=== PATIENT | female | born 1985 | race African-American/Black ===

== ENCOUNTER 2019-06-20 13:14 | Emergency (ER) | payer SELFPAY ==
[2019-06-20 15:31] LABS: Urine Blood 3+ (NEG); Urine Glucose NEGATIVE (NEG); Urine Protein NEGATIVE (NEG); Urine Specific Gravity >1.030 (1.005-1.030)
[2019-06-20 15:33] LABS: Urine Bacteria 20-50 /HPF (<20); Urine Culture Reflex Order REFLEXED; Urine Mucus 2+ /HPF (NONE SEEN)
[2019-06-20] MEDS ORDERED: AZITHROMYCIN 250 MG TAB ONE (16:34)
[2019-06-20] MEDS ORDERED: CEFTRIAXONE 1000 MG/VIAL ONE (16:34)
[2019-06-20] MEDS ORDERED: WATER FOR INJ,STERILE 10 ML ONE (16:34)
--- NOTE | 2019-06-20 16:41 | EDPHYS ---
Physician Documentation [facility] Name: Yu Chavez Age: 34 yrs Sex: Female : 1985 Arrival Date: 06/20/2019 Time: 13:17 Bed 30 Private MD: Дмитрий Hill HPI: 06/19 14:18 This 34 yrs old Black Female presents to ER via Ambulatory with complaints of Vaginal pm1 Discharge, Finger Injury. 14:18 The patient presents with vaginal discharge, patient has had similar discharge in the pm1 past, Bacterial Vaginosis. 14:19 Onset: The symptoms/episode began/occurred yesterday. Modifying factors: The symptoms pm1 are alleviated by nothing, the symptoms are aggravated by nothing. Associated signs and symptoms: Pertinent negatives: diarrhea, dysuria, fever, vomiting. The patient's method of control includes condom. Patient with vaginal discharge onset yesterday. Similar to prior discharge in the past that was diagnosed as BV and prescribed Flagyl. Patient also complaining of right middle finger pain and swelling. Historical: - Allergies: 13:38 No Known Allergies; ss - Home Meds: 13:38 None [Active]; ss - PMHx: 13:38 None; ss - PSHx: 13:38 ; ss - Immunization history:: Adult Immunizations up to date. - Social history:: Smoking status: Patient reports the use of cigarette tobacco products, smokes one-half pack cigarettes per day. ROS: 14:19 Positive for vaginal discharge, Negative for urinary symptoms, vaginal bleeding. pm1 14:19 Constitutional: Negative for fever, chills, and weight loss, Neck: Negative for injury, pain, and swelling, Cardiovascular: Negative for chest pain, palpitations, and edema, Respiratory: Negative for shortness of breath, cough, wheezing, and pleuritic chest pain, Abdomen/GI: Negative for abdominal pain, nausea, vomiting, diarrhea, and constipation, Back: Negative for injury and pain. 14:19 Skin: Negative for injury, rash, and discoloration, Neuro: Negative for headache, weakness, numbness, tingling, and seizure. 14:19 MS/extremity: Positive for pain, swelling, tenderness, of the right middle finger, Negative for injury or acute deformity, decreased range of motion, deformity. Exam: 14:19 Constitutional: This is a well developed, well nourished patient who is awake, alert, pm1 and in no acute distress. Head/Face: Normocephalic, atraumatic. Neck: Trachea midline, no thyromegaly or masses palpated, and no cervical lymphadenopathy. Supple, full range of motion without nuchal rigidity, or vertebral point tenderness. No Meningismus. Chest/axilla: Normal chest wall appearance and motion. Nontender with no deformity. No lesions are appreciated. Cardiovascular: Regular rate and rhythm with a normal S1 and S2. No gallops, murmurs, or rubs. No pulse deficits. Respiratory: Lungs have equal breath sounds bilaterally, clear to auscultation and percussion. No rales, rhonchi or wheezes noted. No increased work of breathing, no retractions or nasal flaring. Abdomen/GI: Soft, non-tender, with normal bowel sounds. No distension or tympany. No guarding or rebound. No evidence of tenderness throughout. Back: No spinal tenderness. No costovertebral tenderness. Full range of motion. 14:19 MS/ Extremity: Pulses equal, no cyanosis. Neurovascular intact. Full, normal range of motion. 14:19 Skin: Appearance: normal except for affected area, swelling, noted on the lateral to right middle fingernail, that are mild. 14:19 Neuro: Orientation: is normal, Motor: is normal, moves all fours, Sensation: is normal, no obvious gross deficits. Vital Signs: 13:36 BP 116 / 78; Pulse 77; Resp 15; Temp 98.5(TE); Pulse Ox 99% on R/A; Weight 74.39 kg; ss Height 5 ft. 4 in. (162.56 cm); Pain 0/10; 16:00 BP 124 / 81; Pulse 79; Resp 18; Pulse Ox 99% on R/A; wh 13:36 Body Mass Index 28.15 (74.39 kg, 162.56 cm) MDM: 14:04 Patient medically screened. pm1 16:18 Data reviewed: vital signs. Data interpreted: Pulse oximetry: on room air is 99 %. pm1 Interpretation: normal. 16:36 Refusal of service: The patient/guardian displays adequate decision making capability pm1 and despite a detailed discussion of alternatives, benefits, risks, and consequences refuses: Patient does not want to wait for labs, particularly beta HCG level because she needs to fruit picker her child. Patient reports that she would be approximately 2-3 weeks . Based on pelvic exam, patient with likely threatened miscarriage but unable to rule out ectopic without U/S if needed based on Beta HCG. 18:56 ED course: Despite patient leaving AMA, I called the patient to inform her that her pm1 is further along than she believed. [place] [id number] and highly encouraged ultrasound with technical report writer or ER as soon as possible to determine location of due to risk of ectopic . Informed her that ectopic can cause hemorrhaging and if not ruled out and treated. 06/19 14:16 Order name: Wet Prep; Complete Time: 15:59 pm1 06/19 14:16 Order name: GC (GONORR/CHLAMYDIA) Probe pm1 06/19 14:16 Order name: Urine Microscopic Only; Complete Time: 15:36 pm1 06/19 15:16 Order name: Urine Dipstick--Ancillary (enter results) bd 06/19 15:16 Order name: Urine --Ancillary (enter results) bd 06/19 15:32 Order name: Urine --Ancillary; Complete Time: 15:36 EDMS 06/19 15:32 Order name: Urine Dipstick-Ancillary; Complete Time: 15:36 EDLA 06/19 15:37 Order name: Quantitative Hcg; Complete Time: 18:49 pm1 06/19 15:37 Order name: Abo/rh Typing; Complete Time: 18:49 pm1 06/19 15:37 Order name: Basic Metabolic Panel; Complete Time: 18:49 pm1 06/19 15:37 Order name: CBC with Diff; Complete Time: 17:16 pm1 06/19 16:02 Order name: Urine Culture EDLA 06/19 14:16 Order name: Urine Dipstick-Ancillary (obtain specimen); Complete Time: 15:09 pm1 06/19 14:16 Order name: Urine Test (obtain specimen); Complete Time: 15:09 pm1 06/19 15:37 Order name: Labs collected and sent; Complete Time: 16:25 pm1 06/19 15:37 Order name: NPO; Complete Time: 16:25 pm1 Administered Medications: 15:38 CANCELLED (Duplicate Order): Rocephin 1 grams IV at calculated rate once; Given slow IV pm1 push per pharmacy instructions 16:36 Drug: AZITHromycin 1 grams Route: PO; 17:00 Follow up: Response: No adverse reaction 16:37 CANCELLED (Physician Discretion): Rocephin 1 grams IV at calculated rate once; Given wh slow IV push per pharmacy instructions 16:37 Drug: Rocephin (cefTRIAXone) 1 grams Route: IM; Site: left gluteus; 17:00 Follow up: Response: No adverse reaction Disposition: 06/20 07:42 Co-signature as Attending Physician, Дмитрий Chavez MD I agree with the assessment and natalie plan of care. Disposition: 06/20/19 16:41 Patient has left against medical advice. Impression: Threatened , Cellulitis of right finger - paronychia of middle finger, Urinary tract infection, site not specified. - Patients states they are going to Home. - Condition is Stable. - Discharge Instructions: Paronychia, Threatened Miscarriage, and Urinary Tract Infection, Pelvic Rest. - Prescriptions for Augmentin 875- 125 mg Oral Tablet - take 1 tablet by ORAL route every 12 hours for 10 days; 20 tablet. Work release form form. Follow up: Emergency Department; When: As needed; Reason: Worsening of condition. Follow up: Private Physician; When: 2 - 3 days; Reason: Recheck today's complaints, Continuance of care, Re-evaluation by your physician. - Problem is new. - Symptoms have improved. Signatures: Dispatcher [employer] Дмитрий Gomez MD MD cha Smirch, Shelby, RN RN Don Salinas, BELT BUILDER HELPER BELT BUILDER HELPER pm1 DajuanbrionnaRabia Corrections: (The following items were deleted from the chart) 06/19 15:38 15:37 Rocephin 1 grams IV at calculated rate once; Given slow IV push per pharmacy pm1 instructions ordered. pm1 16:25 15:37 IV Saline Lock ordered. pm1 16:37 15:37 Rocephin 1 grams IV at calculated rate once; Given slow IV push per pharmacy instructions ordered. pm1 16:43 16:41 06/20/2019 16:41 Patients has left against medical advice. Impression: Threatened pm1 ; Cellulitis of right finger - paronychia of middle finger. Patient states they are going to Home. Condition is Stable. Follow up: Emergency Department; When: As needed; Reason: Worsening of condition. Follow up: Private Physician; When: 2 - 3 days; Reason: Recheck today's complaints, Continuance of care, Re-evaluation by your physician. Problem is new. Symptoms have improved. pm1 17:05 16:43 06/20/2019 16:41 Patients has left against medical advice. Impression: Threatened wh ; Cellulitis of right finger - paronychia of middle finger; Urinary tract infection, site not specified. Patient states they are going to Home. Condition is Stable. Discharge Instructions: Paronychia, Threatened Miscarriage, and Urinary Tract Infection, Pelvic Rest. Prescriptions for Augmentin 875-125 mg Oral Tablet - take 1 tablet by ORAL route every 12 hours for 10 days; 20 tabletFollow up: Emergency Department; When: As needed; Reason: Worsening of condition. Follow up: Private Physician; When: 2 - 3 days; Reason: Recheck today's complaints, Continuance of care, Re-evaluation by your physician. Problem is new. Symptoms have improved. pm1
--- NOTE | 2019-06-20 16:41 | ER ---
Nurse's Notes [facility] Name: Yu Chavez Age: 34 yrs Sex: Female : 1985 Arrival Date: 06/20/2019 Time: 13:17 Bed 30 Private MD: Diagnosis: Threatened ;Cellulitis of right finger-paronychia of middle finger;Urinary tract infection, site not specified Presentation: 06/19 13:36 Chief complaint: Patient states: vaginal discharge that began yesterday. Pain, swelling ss and tingling to R third finger that began earlier today. Pt states, "I think I have an infected hang nail or something.". Coronavirus screen: The patient has NOT traveled to a country currently being monitored by the [facility] within the last 14 days. Proceed with normal triage procedures. Ebola Screen: Patient denies exposure to infectious person. Patient denies travel to an Ebola-affected area in the 21 days before illness onset. Initial Sepsis Screen: Does the patient meet any 2 criteria? No. Patient's initial sepsis screen is negative. Does the patient have a suspected source of infection? No. Patient's initial sepsis screen is negative. Risk Assessment: Do you want to hurt yourself or someone else? Patient reports no desire to harm self or others. 13:36 Method Of Arrival: Ambulatory ss 13:36 Acuity: CHHAYA 3 ss 14:15 Onset of symptoms is unknown. wh Triage Assessment: 14:15 General: Appears in no apparent distress. Behavior is calm, cooperative, appropriate wh for age. Historical: - Allergies: 13:38 No Known Allergies; ss - Home Meds: 13:38 None [Active]; ss - PMHx: 13:38 None; ss - PSHx: 13:38 ; ss - Immunization history:: Adult Immunizations up to date. - Social history:: Smoking status: Patient reports the use of cigarette tobacco products, smokes one-half pack cigarettes per day. Screenin:15 Abuse screen: Denies threats or abuse. Denies injuries from another. Nutritional wh screening: No deficits noted. Tuberculosis screening: No symptoms or risk factors identified. Fall Risk None identified. Assessment: 14:15 General: Appears in no apparent distress. Behavior is calm, cooperative, appropriate wh for age. Pain: Complains of pain in right middle finger Pain currently is 7 out of 10 on a pain scale. Quality of pain is described as aching. Neuro: Level of Consciousness is awake, alert, obeys commands, Oriented to person, place, time, situation, Appropriate for age. Cardiovascular: Capillary refill < 3 seconds. Respiratory: Airway is patent Respiratory effort is even, unlabored, Respiratory pattern is regular, symmetrical. GI: Abdomen is flat, non-distended. : Reports vaginal bleeding that is bright red, with clots, moderate flow. EENT: No signs and/or symptoms were reported regarding the EENT system. Derm: Skin is intact, is healthy with good turgor, Skin is pink, warm \\T\\ dry. normal. Musculoskeletal: Circulation, motion, and sensation intact. 15:30 Reassessment: Patient appears in no apparent distress at this time. No changes from previously documented assessment. Patient and/or family updated on plan of care and expected duration. Pain level reassessed. Patient is alert/active/playful, equal unlabored respirations, skin warm/dry/pink. 16:45 Reassessment: Patient appears in no apparent distress at this time. No changes from previously documented assessment. Patient and/or family updated on plan of care and expected duration. Pain level reassessed. Patient is alert/active/playful, equal unlabored respirations, skin warm/dry/pink. Pt wants to signs AMA and leave without knowing results, notified Provider. Vital Signs: 13:36 BP 116 / 78; Pulse 77; Resp 15; Temp 98.5(TE); Pulse Ox 99% on R/A; Weight 74.39 kg; Height 5 ft. 4 in. (162.56 cm); Pain 0/10; 16:00 BP 124 / 81; Pulse 79; Resp 18; Pulse Ox 99% on R/A; wh 13:36 Body Mass Index 28.15 (74.39 kg, 162.56 cm) ED Course: 13:17 Patient arrived in ED. rg4 13:38 Triage completed. ss 13:38 Arm band placed on right wrist. ss 13:59 Rabia Vasques is Primary Nurse. wh 14:04 Don Salmon NP is PHCP. pm1 14:04 Дмитрий Chavez MD is Attending Physician. pm1 14:15 Patient has correct armband on for positive identification. Bed in low position. Call light in reach. Side rails up X 1. Pulse ox on. NIBP on. 15:21 Assist provider with pelvic exam: Set up pelvic tray. Performed by Don Salmon NP Specimens sent to lab. Patient tolerated well. Aline HINES Tech as stage technician. 15:29 GC (GONORR/CHLAMYDIA) Probe Sent. 3 15:29 Wet Prep Sent. 3 16:43 Initial lab(s) drawn, by mi, sent to lab. 3 17:00 Patient did not have IV access during this emergency room visit. Administered Medications: 15:38 CANCELLED (Duplicate Order): Rocephin 1 grams IV at calculated rate once; Given slow IV pm1 push per pharmacy instructions 16:36 Drug: AZITHromycin 1 grams Route: PO; 17:00 Follow up: Response: No adverse reaction 16:37 CANCELLED (Physician Discretion): Rocephin 1 grams IV at calculated rate once; Given slow IV push per pharmacy instructions 16:37 Drug: Rocephin (cefTRIAXone) 1 grams Route: IM; Site: left gluteus; 17:00 Follow up: Response: No adverse reaction Outcome: 17:00 AMA AMA form signed 17:00 Condition: stable 17:00 Discharge instructions given to patient, Instructed on discharge instructions, follow up and referral plans. medication usage, POC Demonstrated understanding of instructions, follow-up care, medications, POC Prescriptions given X 1. 17:05 Patient left the ED. Addendum: 06/22/2019 09:24 Addendum: Culture Results: Positive urine culture. No further action required. Bacteria d m5 sensitive to prescribed antibiotic. Signatures: Whit Jean, SHAWANDA [email or web address] Louise Bennett RN RN ss Marinas, Patrick, NP TRAFFIC ENGINEERING TECHNICIAN pm1 Tamra Muniz4 Aline La [facility] Rabia Vasques Larry Cee 3
[2019-06-20 17:02] LABS: Absolute Lymphocytes (CBC) 2.3 K/uL (0.7-4.9); Basophils % 0.4 % (0-1.3); Hematocrit 32.7 % (36.0-45.0); Lymphocytes % 36.3 % (15.3-44.8); MPV 8.4 fL (7.6-11.3); RBC Red Blood Cell Count 3.75 M/uL (3.86-4.86)
[2019-06-20 17:29] LABS: BUN Blood Urea Nitrogen 8 mg/dL (7-18); Bicarbonate 26 mmol/L (21-32); Glucose Level 85 mg/dL (74-106); HCG, Quantitative 30623 mIU/mL (1-3); Potassium 3.8 mmol/L (3.5-5.1); Sodium Level 137 mmol/L (136-145)
[2019-06-20 17:50] VITALS: BP 116/78; TEMP 98.5; O2SAT 99
[2019-06-22 16:04] LABS: C.trachomatis RNA,TMA Not Detected (Not Detected)
== END 2019-06-20 17:05 | disposition left against medical advice (07) ==
LOC: ER 13:14
DX: O20.0 Threatened abortion (principal); O23.41 Unspecified infection of urinary tract in pregnancy, first trimester; Z3A.01 Less than 8 weeks gestation of pregnancy; L03.011 Cellulitis of right finger; F17.210 Nicotine dependence, cigarettes, uncomplicated
CPT/HCPCS: 36415; 80048; 81003; 81015; 81025; 84702; 85025; 86900; 86901; 87077; 87086; 87088; 87186; 87210; 87490; 87590; 96372; 99284